=== PATIENT | female | born 1950 | race Caucasian/White ===

== ENCOUNTER 2018-08-30 05:55 | Day surgery (SDC) | payer MEDICARE, OTHER ==
[2018-08-30] MEDS ORDERED: TRANEXAMIC ACID 1,000 MG/10 ML ML IV ONE (05:56)
[2018-08-30] MEDS ORDERED: DEXAMETHASONE 4 MG/ML 1ML VIAL IVP ONE (05:56)
[2018-08-30] MEDS ORDERED: EPHEDRINE SULFATE 50 MG/ML ML IV ONE (05:56)
[2018-08-30] MEDS ORDERED: MIDAZOLAM HCL 2MG/2ML VIAL IV ONE (05:56)
[2018-08-30] MEDS ORDERED: PROPOFOL 10 MG/ML VIAL IV ONE (05:56)
[2018-08-30] MEDS ORDERED: ROPIVACAINE HCL (NAROPIN) /PF 5MG/ML 20ML VIAL IV ONE (05:56)
[2018-08-30] MEDS ORDERED: CLINDAMYCIN PHOS/D5W 900MG 900 MG/50 ML BAG IVPB ONE (06:00)
[2018-08-30] MEDS ORDERED: METOCLOPRAMIDE 10 MG TABLET PO ONE (06:00)
[2018-08-30] MEDS ORDERED: ACETAMINOPHEN 500 MG TABLET PO ONE (06:00)
[2018-08-30] MEDS ORDERED: SCOPOLAMINE 1 PATCH TDSY TD ONE (06:00)
[2018-08-30] MEDS ORDERED: VANCOMYCIN 1GM/200ML PREMIX 1 GM/200 ML PIGGYBACK IVPB ONE (06:00)
[2018-08-30] MEDS ORDERED: FAMOTIDINE 20MG TABLET PO ONE (06:00)
[2018-08-30] MEDS ORDERED: 0.9 % SODIUM CHLORIDE 1000ML 1,000 ML IV ONE ×2 (06:40→09:57)
[2018-08-30 07:37] LABS: ABO GROUP O; ANTIBODY SCREEN NEGATIVE (NEGATIVE); RH TYPE POSITIVE
[2018-08-30] MEDS ORDERED: TRAMADOL HCL 50 MG TABLET PO PRN ×2 (08:03)
[2018-08-30] MEDS ORDERED: KETOROLAC 30 MG/ML VIAL IVP PRN ×2 (08:03)
[2018-08-30] MEDS ORDERED: HYDROCODONE/APAP 5/325MG TABLET PO PRN ×2 (08:03)
[2018-08-30] MEDS ORDERED: ONDANSETRON 4 MG ODT TABLET SL PRN (08:03)
[2018-08-30] MEDS ORDERED: AL HYDROX/MAG HYDROX 30ML UD PO PRN (08:03)
[2018-08-30] MEDS ORDERED: NALOXONE 0.4 MG/1 ML VIAL IVP PRN (08:03)
[2018-08-30] MEDS ORDERED: ACETAMINOPHEN W/ CODEINE 300MG/30MG TABLET PO PRN ×2 (08:03)
[2018-08-30] MEDS ORDERED: HYDROCODONE/APAP 7.5/325MG TABLET PO PRN ×2 (08:03)
[2018-08-30] MEDS ORDERED: BISACODYL 10 MG SUPP RC PRN (08:03)
[2018-08-30] MEDS ORDERED: ACETAMINOPHEN W/ CODEINE 300MG/60MG TABLET PO PRN ×2 (08:03)
[2018-08-30] MEDS ORDERED: PROMETHAZINE HCL 25 MG TABLET PO PRN (08:03)
[2018-08-30] MEDS ORDERED: METOCLOPRAMIDE 10 MG TABLET PO PRN (08:03)
[2018-08-30] MEDS ORDERED: ACETAMINOPHEN 325 MG TAB PO PRN (08:03)
[2018-08-30] MEDS ORDERED: MAGNESIUM HYDROXIDE 30 ML UDC PO PRN (08:03)
[2018-08-30] MEDS ORDERED: DIPHENHYDRAMINE HCL 25 MG CAPSULE PO PRN (08:03)
[2018-08-30] MEDS ORDERED: VANCOMYCIN HCL 3,000 MG in RINGERS SOLUTION,LACTATED 3,000 ML IVPB ONE (08:51)
[2018-08-30] MEDS ORDERED: BUPIVACAINE 0.5% W/EPI MPF 30 ML VIAL SQ ONE (08:52)
[2018-08-30] MEDS ORDERED: BUPIVACAINE LIPOSOME 266MG/20ML VIAL SQ ONE (08:53)
[2018-08-30] MEDS ORDERED: RINGERS SOLUTION,LACTATED 1,000 ML IV ONE (10:16)
[2018-08-30] MEDS ORDERED: DEXTROSE 5 % AND 0.9 % NACL 1,000 ML IV PRN (10:30)
[2018-08-30] MEDS ORDERED: VANCOMYCIN HCL 500 MG in 0.9 % SODIUM CHLORIDE 100ML 100 ML IVPB SCH (11:00)
--- NOTE | 2018-08-30 13:36 | Rehab Evaluation ---
Patient Information - Patient Information Diagnosis: R knee OA Ordered Treatment: PT Evaluate and Treat Status: Initial Evaluation Surgery: Yes (R knee TKA) Date of Surgery: 08/30/18 Past Medical/Surgical Hx: PAST MEDICAL/SURGICAL HISTORY Past Surgical History STOMACH STAPLING LUNG BX BREAST AUGMENTATION VEIN STRIPPING PMH - Respiratory Hx Respiratory Disorders Yes Comment: HX FUNGAL INFECTION IN LUNGS (FROM CHICKEN FEATHERS) PMH - Cardiovascular Hx Cardiovascular Disorders Yes Hx Edema Yes: LE ON DIURETIC TAKES PRN Hx Vascular Disease Yes Exercise Tolerance Good PMH - Neuro Hx Neurological Disorders No PMH - GI Hx Gastrointestinal Disorders Yes Hx Gastroesophageal Reflux Yes Hx Ulcer Yes: ESOPHAGEAL Comment: HX GASTRIC STAPLING PMH - Hx Genitourinary Disorders Yes Hx Bladder Problem Yes: FREQUENCY PMH - Endocrine Hx Endocrine Disorders No PMH - Musculoskeletal Hx Musculoskeletal Disorders Yes Hx Arthritis Yes: RIGHT HAND AND RIGHT KNEE PMH - Psych Hx Psychiatric Problems Yes Hx Anxiety Yes PMH - Hematology/Oncology Hx Hematology/Oncology Yes Disorders Hx Anemia Yes: ON DAILY IRON D/T GASTRIC STAPLING HX IRON INFUSIONS Premorbid Status: Detail (The patient was independent with all mobility prior to surgery.) Social History: Detail (The patient lives with spouse in a 2 story house with 3 steps at the enterance with no handrails. The patient's bathroom is equipped with a tub/shower combination and a standard height toilet. No grab bars are present in the bathroom. The patient has a walker with wheels and a single point cane.) Precautions: Pur[place], Fall, Other (WBAT on th R LE.) - Time With Patient Total Time Spent With Patient (Min): 30 Treatment Procedures: Detail (Initial Evaluation, gait training.) Subjective Information - Subjective Information Per Patient (The patient had complaints of pain level 5 at the highest using 0- 10 pain scale.) Objective Data - Mental Status Patient Orientation: Oriented x3 - Visual Perception Appears within normal limits for therapeutic activities - ROM Not within normal limits (The patient's R knee AROM is limited as to be expected following surgery. All other AROM is WNL.) - Strength/Tone Not within normal limits (The patient's R LE strength was not tested s/p surgery however is functional ie: the patient is able to complete a SLR. The patient's L LE strength is WNL.) - Bed Mobility Independent (The patient was independent with supine to and from sit transfer.) - Transfers Independent (The patient was independent with sit to and from stand transfer.) - Balance Balance Sitting: Good Balance Standing: Good - Gait Detail (The patient ambulated with front wheeled walker a distance of 82 feet x 2 WBAT on the R LE independently. The patient ambulated on 3 steps with use of folded walker with supervision for safety using proper technique.) Therapy Assessment - Therapy Assessment Detail (The patient was independent with ambulation, bed mobility and transfers and HEP. The patient has met all inpatient PT goals and [facility]. The patient is to receive Home PT services.) Patient Education - Patient Education Teaching Topic: Exercise/Activity (The patient completed the following TKA exercises including: seated heel slides, quad sets, hamstring sets, SLR, ankle pumps gluteal sets and seated hamstring stretch.) Response: Return Demonstration Teaching Method: Demonstration, Handout Teaching Recipient: Patient Barriers To Learning: Age Related Problem List - Problem List Physical Therapy Problem List: Detail (Decreased R knee AROM and decreased R LE strength) Goals - Goals Physical Therapy Goals: All inpatient PT goals have been met. Plan - Plan Physical Therapy Plan: Patient is discharged from inpatient PT and is to continue with Home PT.
--- NOTE | 2018-08-30 13:57 | Rehab Evaluation ---
Patient Information - Patient Information Diagnosis: R knee OA Ordered Treatment: OT Evaluate and Treat Status: Initial Evaluation Surgery: Yes (R knee TKA) Date of Surgery: 08/30/18 Past Medical/Surgical Hx: PAST MEDICAL/SURGICAL HISTORY Past Surgical History STOMACH STAPLING LUNG BX BREAST AUGMENTATION VEIN STRIPPING PMH - Respiratory Hx Respiratory Disorders Yes Comment: HX FUNGAL INFECTION IN LUNGS (FROM CHICKEN FEATHERS) PMH - Cardiovascular Hx Cardiovascular Disorders Yes Hx Edema Yes: LE ON DIURETIC TAKES PRN Hx Vascular Disease Yes Exercise Tolerance Good PMH - Neuro Hx Neurological Disorders No PMH - GI Hx Gastrointestinal Disorders Yes Hx Gastroesophageal Reflux Yes Hx Ulcer Yes: ESOPHAGEAL Comment: HX GASTRIC STAPLING PMH - Hx Genitourinary Disorders Yes Hx Bladder Problem Yes: FREQUENCY PMH - Endocrine Hx Endocrine Disorders No PMH - Musculoskeletal Hx Musculoskeletal Disorders Yes Hx Arthritis Yes: RIGHT HAND AND RIGHT KNEE PMH - Psych Hx Psychiatric Problems Yes Hx Anxiety Yes PMH - Hematology/Oncology Hx Hematology/Oncology Yes Disorders Hx Anemia Yes: ON DAILY IRON D/T GASTRIC STAPLING HX IRON INFUSIONS Premorbid Status: Detail (The patient was independent with all mobility prior to surgery. Her daughter is responsible for all home mgmt, meal prep and laundry.) Social History: Detail (The patient lives with spouse and daughter in a 2 story house with 3 steps at the entrance, no handrails. Her bedroom is on the second floor but she will be staying on the main level initially. The patient's bathroom is equipped with a tub/shower combination and a standard height toilet. No grab bars are present in the bathroom. The patient usually stands to shower. The patient has a walker with wheels and a single point cane.) Precautions: [place], Fall, Other (WBAT on the R LE.) - Time With Patient Total Time Spent With Patient (Min): 30 Treatment Procedures: Detail (OT eval low complexity) Subjective Information - Subjective Information Per Patient Objective Data - Pain Pain Present: Yes (07/23) - Mental Status Patient Orientation: Oriented x3 - Visual Perception Appears within normal limits for therapeutic activities - ROM Within normal limits ([place] UE AROM WNL) - Strength/Tone Within normal limits ([place] UE strength WNL per observation. Pt reports left shoulder pain when lifting at times.) - Coordination Appears within normal limits for therapeutic activities - Bed Mobility Independent (Ind with supine to sit) - Transfers Independent (Ind with sit to stand from EOB and chair heights.) - Balance Balance Sitting: Good Balance Standing: Good - Sensation Intact - Gait Detail (Pt ambulating in room with 2 wheeled walker Indly.) - ADL's/IADL's Detail (Pt educated and able to demonstrate learning of modified LE dressing techniques including doffing briefs and slipper socks and donning underwear, pants and slip on shoes. Reviewed shower and kitchen safety and modifications, pt verbalized understanding.) Therapy Assessment - Therapy Assessment Detail (Pt is Ind with modified LE dressing techniques.) Problem List - Problem List Occupational Therapy Problem List: Detail (No current IP OT problems identified.) Goals - Goals Occupational Therapy Goals: No current IP OT goals identified. Prognosis - Prognosis Good Plan - Plan Occupational Therapy Plan: No further IP OT recommended at this time. Thank you for this referral.
[2018-08-30] MEDS ORDERED: DOCUSATE SODIUM 100 MG CAPSULE PO SCH (22:00)
--- NOTE | 2018-09-06 08:40 | Operative Note ---
DATE OF SERVICE: 08/30/2018. DATE OF SURGERY: 08/30/2018. PREOPERATIVE DIAGNOSIS: End-stage right knee arthrosis. POSTOPERATIVE DIAGNOSIS: End-stage right knee arthrosis. OPERATION: Right total knee arthroplasty. SURGEON: Clint Garcia DO. ANESTHESIA: Spinal. TOURNIQUET: No tourniquet used. OPERATIVE FINDINGS: [id number] erosive medial compartment arthrosis. COMPONENTS PLACED: A 2 g vancomycin cemented [employer] Journey II Oxinium size 8 femoral component, size 6 tibial baseplate, a 13 mm tibial poly insert, and a 35 mm cemented patellar component. INDICATION: This is a 68-year-old female with severe end-stage knee arthrosis. She has erosive arthrosis impairing the medial tibial plateau, and scheduled for the procedure above. I explained the risks and benefits in detail for her diagnosis and procedures, including, but not limited to, infection, nerve injury, vessel injury, persistent pain, persistent numbness, tingling, periprosthetic fracture, need for resection arthroplasty, components infected or loosened, nerve or vessel injury, blood clot, and need for further procedures, and all her questions were answered, her operating room course was outlined, and she agreed to proceed. PROCEDURE: The patient brought to the OR, placed in the supine position, and prepped for surgery. Spinal anesthesia induced, short acting. Planned an outpatient procedure, and her right lower extremity and knee prepped and draped in sterile fashion. The right knee was prepped again with ChloraPrep, was draped, and an intraoperative time out was performed. Next, the leg was exsanguinated with Esmarch, but we did not use tourniquet in this outpatient procedure and planned to use an Aquamantys cauterization throughout the entire procedure. Next, an anterior incision was marked and infiltrated with 0.5% Marcaine with epi, tranexamic acid administered. Skin and subcutaneous tissues dissected down. Incised the capsule medially along the medial border of the patella and laterally and then incised the capsule around the medial border of the patella to the tibial tubercle. Incised the vastus medialis and its fibers in a mid vastus approach. I everted the patella, partially resected the retropatellar fat pad, elevated the capsule subperiosteally medially, and we cauterized with Aquamantys, painting brush strokes back and forth in the subcutaneous tissue and during basically the entire procedure. I next flexed the knee. She had erosive [id number] medial compartment arthrosis with erosion of the medial condyle, as well. Next, then after we had bleeding good and controlled, we then drilled the intercondylar drill hole, inserted the intramedullary guide and 6 degree cutting block aligned with the distal femoral condyles, pinned in place in +2 mm position. Cut the distal femoral condyles. We placed the sizing jig. The distal femoral condyle was sized to be right on size 8. Through the previously placed pinholes, we placed a size 8 cutting jig. We dialed in the anterior cut so it would come out flush without notching. We cut that cut. It was a good, flush cut, and then pinned it, cut the remainder of chamfer cuts in usual fashion. We placed a size 8 trial component, centered it, pinned it, removed osteophytes off the periphery, and then inserted the femoral resection collar and reamed out, and Box osteotome off the cruciate bone block. Attention was turned to the tibia. Placed an external alignment jig in the tibia, seated the spikes in the tubercular groove 2 fingerbreadths distal to the anterior tibial cortex and referenced for a 7 mm cut off the higher lateral plateau, slightly over 7 to cover the medial tibial erosion, then pinned the cutting jig in place provisionally with 2 anterior and posterior pins, and rechecked alignment of the tibial cutting jig with a drop yaa. We centered that again in the tibial anatomic axis, cross-pinned, and completed the fixation, cut the tibia. Next, we removed osteophytes of posterior femoral condyles. Next, we used Aquamantys to cauterize the posterior capsule. Next, checked flexion and extension gaps. It was tight medially as expected. We had to do a release, subperiosteally released slight pie crust and deep release of the deep MCL, and we sized it up to a size 13 mm, and that still allowed for 1-2 mm of varus/valgus laxity in flexion and extension. Overall alignment cuts and extension with anatomic valgus orientation, alignment yaa centered on the hip joint and ankle joint. Next, then took the knee into flexion. Sized tibial base with a size 6, covering the erosion and centering it, and then we set the rotations, tibial base again in extension, using alignment yaa centered on the hip joint and ankle joint. It was in anatomic valgus orientation. We marked with electrocautery rubio off the anterior tibial cortex off the laser rubio on the tibial baseplate. Next, we measured the patella to be 24 mm, set the cutting jig at 13 mm to allow for a 9 mm thick insert. We cut the patella, sized to be 35, medialized as much as possible, and drilled 3 peg holes. Mixed cement. Did a trial range of motion. Patella tracked nicely and we had full extension and flexion to 120-130 degrees, again symmetric flexion-extension gaps. Next, changed gloves, brought in clean sheets, copiously irrigated bony surfaces with pulse lavage with antibiotic solution, placed a bone plug in the femoral canal hole, cauterized again with Aquamantys as much as possible in the capsule. Next, then placed a drill bit in the tibial keel punch hole after we keel punched that and drilled that out, and pre-coated both surfaces and packed down the tibial component first, then the femoral component. Placed the trial tibial poly liner, held the knee in extension until the cement hardened, after we clamped down the patellar component. I took the knee in flexion, distracted the knee with bone hook and sponge, and again recauterized the posterior capsule with our Aquamantys, and injected several sticks of 0.5% Marcaine with epi, tranexamic acid, Exparel mixture around the deep capsule, medial, lateral, periosteum, working out superficially, layered. Inserted the real tibial poly insert and verified it was interlocked, and final range of motion and stability were the same. Then we irrigated copiously and injected again our mixture more superficially now, quadriceps, vastus medialis, quad tendon, patellar tendon, and subcutaneous. The knee was closed in slight flexion using a running #2 Quill suture, irrigated again, and closed the skin deep with 2-0 Vicryl, and provisional dressing was applied with that, and we changed to SEGUNDO dressing prior to discharge. Siva wrap applied. Patient tolerated procedure well. No complications. Sponge and needle counts correct. To recovery room stable, neurologically intact. Will be discharged as an outpatient and follow up in 2 weeks. CC: Dr. Robel DUBON
== END 2018-08-30 15:40 | disposition home health service (06) ==
LOC: SUR 05:55 → MEDSURG 11:03 → SUR 15:40
PROVIDERS: ATTEND Orthopaedic Surgery
DX: M17.11 Unilateral primary osteoarthritis, right knee (principal); I10 Essential (primary) hypertension; R60.1 Generalized edema; D64.9 Anemia, unspecified; R35.0 Frequency of micturition; I99.8 Other disorder of circulatory system
CPT/HCPCS: 76942; 86850; 86900; 86901; J3370; J3490; J7030; J7120